=== PATIENT | male | born 1990 | race Caucasian/White ===

== ENCOUNTER 2019-08-27 23:59 | Emergency (ER) | payer MEDICAID ==
[~2019-08-27] VITALS: Ht 175.3 cm; Wt 99.7 kg
[2019-08-28 00:43] VITALS: BP 114/59
[2019-08-28] MEDS ORDERED: TETANUS, DIPHTHERIA, PERTUSSIS VAC/PF 0.5ML (>7YR OLD) IM ONE (03:30)
[2019-08-28] MEDS ORDERED: TRAMADOL 50MG TABLET PO ONE (03:30)
[2019-08-28] MEDS ORDERED: LIDOCAINE HCL/PF 1% 10 MG/ML 5ML VIAL IJ ONE (03:30)
[2019-08-28] MEDS ORDERED: BACITRACIN ZINC OINT UDPKT TOP ONE (03:30)
== END 2019-08-28 05:33 | disposition home or self-care (01) ==
LOC: ER 23:59
DX: S61.211A Laceration without foreign body of left index finger without damage to nail, initial encounter (principal); W26.0XXA Contact with knife, initial encounter; Y93.G9 Activity, other involving cooking and grilling; Y92.9 Unspecified place or not applicable; Z87.891 Personal history of nicotine dependence
CPT/HCPCS: 12001; 90471; 90715; 99283; A4217; J3490; Z7610

== ENCOUNTER 2019-08-30 05:41 | Emergency (ER) | payer MEDICAID ==
[~2019-08-30] VITALS: Ht 175.3 cm; Wt 100.0 kg
[2019-08-30 06:17] VITALS: BP 110/66
== END 2019-08-30 07:09 | disposition home or self-care (01) ==
LOC: ER 05:41
DX: S61.211D Laceration without foreign body of left index finger without damage to nail, subsequent encounter (principal); X58.XXXD Exposure to other specified factors, subsequent encounter; J45.909 Unspecified asthma, uncomplicated
CPT/HCPCS: 99281; Z7610